=== PATIENT | male | born 1995 | race Caucasian/White ===

== ENCOUNTER → 2018-09-11 | Outpatient (CLI) | payer BC | LOC: COL.RAD 10:09 | DX: R16.0 Hepatomegaly, not elsewhere classified (principal); R10.13 Epigastric pain ==

== ENCOUNTER 2021-11-14 19:48 | Emergency (ER) | payer OTHER ==
[~2021-11-14] VITALS: Ht 185.4 cm; Wt 120.5 kg
[2021-11-14 19:53] VITALS: TEMP 97.5
[2021-11-14] MEDS ORDERED: DOXYCYCLINE 10100 MG PO (20:15)
[2021-11-14] MEDS ORDERED: PREDNISONE20 MG PO (20:15)
[2021-11-14] MEDS ORDERED: VALTREX1 GM PO (20:15)
[2021-11-14 20:20] VITALS: BP 155/80; PULSE 81
== END 2021-11-14 20:25 | disposition home or self-care (01) ==
LOC: COL.ER 19:48
DX: G51.0 Bell's palsy (principal); R03.0 Elevated blood-pressure reading, without diagnosis of hypertension; Z88.0 Allergy status to penicillin; Z88.1 Allergy status to other antibiotic agents